=== PATIENT | male | born 1990 | race Caucasian/White ===

== ENCOUNTER 2018-12-25 18:02 | Emergency (ER) | payer BC, OTHER ==
[2018-12-25] MEDS ORDERED: NA CHLORIDE 0.9% 1,000 ML ONE ×2 (19:03→20:55)
[2018-12-25 19:27] LABS: Absolute Lymphocytes (CBC) 0.7 K/uL (0.7-4.9); Basophils % 0.4 % (0-1.3); Hematocrit 45.8 % (39.6-49.0); Lymphocytes % 7.4 % (15.3-44.8); MPV 8.8 fL (7.6-11.3); RBC Red Blood Cell Count 5.05 M/uL (4.33-5.43)
[2018-12-25 19:38] LABS: ALT/SGPT 32 U/L (12-78); AST/SGOT 24 U/L (15-37); Albumin 3.7 g/dL (3.4-5.0); Alkaline Phosphatase 78 U/L (45-117); BUN Blood Urea Nitrogen 9 mg/dL (7-18); Bicarbonate 26 mmol/L (21-32); Bilirubin Direct 0.2 mg/dL (0-0.2); Bilirubin Total 0.6 mg/dL (0.2-1.0); Glucose Level 99 mg/dL (74-106); Lipase 123 U/L (73-393); Potassium 3.6 mmol/L (3.5-5.1); Protein, Total 6.8 g/dL (6.4-8.2); Sodium Level 138 mmol/L (136-145)
--- NOTE | 2018-12-25 20:04 | RAD REPORT ---
EXAM DESCRIPTION: RAD - Chest Single View - 12/25/2018 7:26 pm CLINICAL HISTORY: Abdominal pain COMPARISON: None. TECHNIQUE: AP portable chest image was obtained 1917 hours . FINDINGS: Lungs are clear. Heart and vasculature are normal. No measurable pleural effusion and no p neumothorax. No acute bony abnormality seen. No acute aortic finding. Upper abdominal bowel gas pattern is unremarkable. No free air under the hemidiaphragms. IMPRESSION: No acute cardiopulmonary process. No free air under the diaphragm.
[2018-12-25] MEDS ORDERED: PROMETHAZINE 25 MG/ML VIAL ONE (20:55)
[2018-12-25] MEDS ORDERED: KETOROLAC 30 MG/ML INJ ONE (20:55)
[2018-12-25] MEDS ORDERED: CIPROFLOXACIN 400mg IV 400 MG/200 ML BAG IV ONE (23:04)
[2018-12-26] MEDS ORDERED: FENTANYL CITR 100 MCG/2 ML ONE
--- NOTE | 2018-12-26 00:06 | EDPHYS ---
Physician Documentation [facility] Name: Stevenson Garces Age: 28 yrs Sex: Male : 1990 Arrival Date: 12/25/2018 Time: 18:14 Bed 7 Private MD: ED Physician Chidi Green HPI: 12/25 23:42 This 28 yrs old Male presents to ER via Ambulatory with complaints of Fever, snw Diarrhea, Bloody Stools. 23:42 The patient reports fever, not measured (subjective). Onset: The symptoms/episode snw began/occurred suddenly, 2 day(s) ago, and became persistent. Modifying factors: The patient has had contact with sick son. Associated signs and symptoms: Pertinent positives: abdominal cramping, fever, bloody stools. Severity of symptoms: At their worst the symptoms were moderate in the emergency department the symptoms are unchanged. The patient has not experienced similar symptoms in the past, but family has similar symptoms, spouse, son. The patient has not recently seen a physician. Pt's Son with bloody diarrhea for weeks, Spouse started having bloody stools in ED. Pt without hx GIB. + bloody stool sent to lab. Pt family has well water.. Historical: - Allergies: 18:18 Sulfa (Sulfonamide Antibiotics); hb 19:05 Morphine; cc3 - Home Meds: 18:18 None [Active]; hb - PMHx: 18:18 None; hb - PSHx: 18:18 None; hb - Immunization history:: Adult Immunizations up to date. - Social history:: Smoking status: Patient uses tobacco products, smokes one-half pack cigarettes per day. - Ebola Screening: : No symptoms or risks identified at this time. ROS: 23:41 Eyes: Negative for injury, pain, redness, and discharge, ENT: Negative for injury, snw pain, and discharge, Neck: Negative for injury, pain, and swelling, Cardiovascular: Negative for chest pain, palpitations, and edema, Respiratory: Negative for shortness of breath, cough, wheezing, and pleuritic chest pain. 23:41 Back: Negative for injury and pain, : Negative for injury, bleeding, discharge, and swelling, MS/Extremity: Negative for injury and deformity, Skin: Negative for injury, rash, and discoloration, Neuro: Negative for headache, weakness, numbness, tingling, and seizure. 23:41 Constitutional: Positive for body aches, malaise. 23:41 Constitutional: Positive for fever. 23:41 Abdomen/GI: Positive for abdominal pain, diarrhea, abdominal cramps, bloody stools. Exam: 21:34 Head/Face: Normocephalic, atraumatic. Eyes: Pupils equal round and reactive to light, snw extra-ocular motions intact. Lids and lashes normal. Conjunctiva and sclera are non-icteric and not injected. Cornea within normal limits. Periorbital areas with no swelling, redness, or edema. ENT: Nares patent. No nasal discharge, no septal abnormalities noted. Tympanic membranes are normal and external auditory canals are clear. Oropharynx with no redness, swelling, or masses, exudates, or evidence of obstruction, uvula midline. Mucous membranes moist. Neck: Trachea midline, no thyromegaly or masses palpated, and no cervical lymphadenopathy. Supple, full range of motion without nuchal rigidity, or vertebral point tenderness. No Meningismus. Chest/axilla: Normal chest wall appearance and motion. Nontender with no deformity. No lesions are appreciated. Cardiovascular: Regular rate and rhythm with a normal S1 and S2. No gallops, murmurs, or rubs. Normal PMI, no JVD. No pulse deficits. Respiratory: Lungs have equal breath sounds bilaterally, clear to auscultation and percussion. No rales, rhonchi or wheezes noted. No increased work of breathing, no retractions or nasal flaring. Abdomen/GI: Soft, non-tender, with normal bowel sounds. No distension or tympany. No guarding or rebound. No evidence of tenderness throughout. Back: No spinal tenderness. No costovertebral tenderness. Full range of motion. Skin: Warm, dry with normal turgor. Pale color with no rashes, no lesions, and no evidence of cellulitis. MS/ Extremity: Pulses equal, no cyanosis. Neurovascular intact. Full, normal range of motion. Neuro: Awake and alert, GCS 15, oriented to person, place, time, and situation. Cranial nerves II-XII grossly intact. Motor strength 5/5 in all extremities. Sensory grossly intact. Cerebellar exam normal. Normal gait. Psych: Awake, alert, with orientation to person, place and time. Behavior, mood, and affect are within normal limits. 21:34 Constitutional: The patient appears alert, awake, anxious, pale. Vital Signs: 18:18 BP 129 / 85; Pulse 91; Resp 16; Temp 98.9(TE); Pulse Ox 96% on R/A; Weight 86.18 kg; hb Height 6 ft. 2 in. (187.96 cm); Pain 10/10; 19:12 BP 120 / 83; Pulse 78; Resp 17 S; Pulse Ox 98% on R/A; cc3 20:15 BP 127 / 76; Pulse 78; Resp 15 S; Pulse Ox 99% on R/A; cc3 21:14 BP 125 / 74; Pulse 75; Resp 16 S; Pulse Ox 98% on R/A; cc3 22:23 BP 115 / 74; Pulse 71; Resp 15 S; Pulse Ox 99% on R/A; Pain 2/10; cc3 23:34 BP 113 / 70; Pulse 78; Resp 18 S; Pulse Ox 99% on R/A; cc3 12/26 00:45 BP 127 / 77; Pulse 67; Resp 15 S; Temp 98.5(O); Pulse Ox 97% on R/A; Pain 2/10; cc3 12/25 18:18 Body Mass Index 24.39 (86.18 kg, 187.96 cm) hb MDM: 12/25 18:52 Patient medically screened. snw 12/26 00:05 Data reviewed: vital signs, nurses notes. Data interpreted: Pulse oximetry: on room air snw is 99 %. Interpretation: normal. Counseling: I had a detailed discussion with the patient and/or guardian regarding: the historical points, exam findings, and any diagnostic results supporting the discharge/admit diagnosis, lab results, the need for outpatient follow up, to return to the emergency department if symptoms worsen or persist or if there are any questions or concerns that arise at home, smoking cessation. Special discussion: Based on the patient's Hx, exam, and Dx evaluation, there is no indication for emergent surgery or inpatient Tx. It is understood by the patient/guardian that if the Sx's persist or worsen they need to return immediately for re-evaluation. Based on the history and exam findings, there is no indication for further emergent testing or inpatient evaluation. I discussed with the patient/guardian the need to see the commercial real estate attorney for further evaluation of the symptoms. I discussed with the patient/guardian the need to see the primary care provider for further evaluation of the symptoms. 12/25 18:54 Order name: Basic Metabolic Panel snw 12/25 18:54 Order name: CBC with Diff; Complete Time: 19:38 snw 12/25 18:54 Order name: Creatinine for Radiology; Complete Time: 19:38 snw 12/25 18:54 Order name: Hepatic Function; Complete Time: 19:55 snw 12/25 18:54 Order name: Lipase; Complete Time: 19:55 snw 12/25 18:54 Order name: Stool Culture snw 12/25 18:54 Order name: Fecal Leukocyte Stain w 12/25 18:54 Order name: Occult Blood; Complete Time: 22:08 snw 12/25 18:54 Order name: Chest Single View XRAY; Complete Time: 20:06 snw 12/25 18:55 Order name: Basic Metabolic Panel; Complete Time: 19:55 EDMS 12/25 18:54 Order name: IV Saline Lock; Complete Time: 19:06 snw 12/25 18:54 Order name: Labs collected and sent; Complete Time: 19:06 snw Administered Medications: 12/25 19:05 Drug: NS 0.9% 1000 ml Route: IV; Rate: 1 bolus; Site: right antecubital; cc3 20:15 Follow up: Response: No adverse reaction; IV Status: Completed infusion; IV Intake: cc3 1000ml 20:55 Drug: NS 0.9% 1000 ml Route: IV; Rate: 1 bolus; Site: right antecubital; cc3 22:00 Follow up: Response: No adverse reaction; IV Status: Completed infusion; IV Intake: cc3 1000ml 20:55 Drug: TORadol - Ketorolac 15 mg Route: IVP; Site: right antecubital; cc3 22:25 Follow up: Response: No adverse reaction; Pain is decreased cc3 21:02 Not Given (Patient Refused): Phenergan 12.5 mg IVP once cc3 23:05 Drug: Cipro 400 mg Volume: 200 ml; Route: IVPB; Infused Over: 60 mins; Site: right cc3 antecubital; 12/26 00:45 Follow up: Response: No adverse reaction; IV Status: Completed infusion; IV Intake: cc3 200ml 00:00 Drug: fentaNYL (PF) 50 mcg Route: IM; Site: right gluteus; cc3 00:45 Follow up: Response: No adverse reaction; Pain is decreased; RASS: Alert and Calm (0) cc3 Disposition: 12/26/18 00:04 Discharged to Home. Impression: Bacterial, bloody diarrhea. - Condition is Stable. - Discharge Instructions: Food Choices to Help Relieve Diarrhea, Adult, Bloody Diarrhea. - Prescriptions for Cipro 500 mg Oral Tablet - take 1 tablet by ORAL route every 12 hours for 10 days; 20 tablet. Zofran 4 mg Oral Tablet - take 1 tablet by ORAL route every 12 hours As needed; 20 tablet. Diclofenac Sodium 75 mg Oral Tablet Sustained Release - take 1 tablet by ORAL route 2 times per day; 30 tablet. - Work release form, Medication Reconciliation Form, Thank You Letter, Antibiotic Education, Prescription Opioid Use form. - Follow up: Private Physician; When: 1 week; Reason: Recheck today's complaints, Continuance of care, Re-evaluation by your physician. Follow up: Emergency Department; When: As needed; Reason: Worsening of condition. Addendum: 12/27/2018 07:18 Co-signature as Attending Physician, Chidi Green MD. r n Signatures: Dispatcher [employer] EDMS Nelly Ford, PRODUCTION TRAINER-C PRODUCTION TRAINER-Csnw Chidi Green MD MD rn Baxter, Heather, RN RN hb Cordel, Charlene cc3 Corrections: (The following items were deleted from the chart) 12/26 00:55 00:04 12/26/2018 00:04 Discharged to Home. Impression: Bacterial, bloody diarrhea. cc3 Condition is Stable. Forms are Medication Reconciliation Form, Thank You Letter, Antibiotic Education, Prescription Opioid Use. Follow up: Private Physician; When: 1 week; Reason: Recheck today's complaints, Continuance of care, Re-evaluation by your physician. Follow up: Emergency Department; When: As needed; Reason: Worsening of condition. snw
--- NOTE | 2018-12-26 00:06 | ER ---
Nurse's Notes [facility] Name: Stevenson Garces Age: 28 yrs Sex: Male : 1990 Arrival Date: 12/25/2018 Time: 18:14 Bed 7 Private MD: Diagnosis: Bacterial, bloody diarrhea Presentation: 12/25 18:17 Presenting complaint: Diarrhea, upper abdominal pain, and fever x 2 days, bloody hb diarrhea since this morning. TMAX 100. Transition of care: patient was not received from another setting of care. Onset of symptoms was December 24, 2018. Risk Assessment: Do you want to hurt yourself or someone else? Patient reports no desire to harm self or others. Initial Sepsis Screen: Does the patient meet any 2 criteria? No. Patient's initial sepsis screen is negative. Does the patient have a suspected source of infection? No. Patient's initial sepsis screen is negative. Care prior to arrival: None. 18:17 Method Of Arrival: Ambulatory hb 18:17 Acuity: ROSE MARIE 3 hb Historical: - Allergies: 18:18 Sulfa (Sulfonamide Antibiotics); hb 19:05 Morphine; cc3 - Home Meds: 18:18 None [Active]; hb - PMHx: 18:18 None; hb - PSHx: 18:18 None; hb - Immunization history:: Adult Immunizations up to date. - Social history:: Smoking status: Patient uses tobacco products, smokes one-half pack cigarettes per day. - Ebola Screening: : No symptoms or risks identified at this time. Screenin:25 Abuse screen: Denies threats or abuse. Denies injuries from another. Nutritional sg screening: No deficits noted. Tuberculosis screening: No symptoms or risk factors identified. Never had TB. Fall Risk None identified. Assessment: 18:25 General: Appears in no apparent distress. uncomfortable, ill, well groomed, well sg developed, well nourished, Behavior is calm, cooperative, appropriate for age. Pain: Denies pain. Neuro: Level of Consciousness is awake, alert, obeys commands, Speech is normal, Facial symmetry appears normal. Cardiovascular: Capillary refill is brisk in bilateral fingers Patient's skin is warm and dry. Chest pain is denied. Respiratory: Airway is patent Respiratory effort is even, unlabored, Respiratory pattern is regular, symmetrical. GI: Abdomen is flat, non-distended, Reports bloody stool. : No signs and/or symptoms were reported regarding the genitourinary system. EENT: No signs and/or symptoms were reported regarding the EENT system. Derm: Skin is intact, is healthy with good turgor, Skin is dry, Skin is pale, Skin temperature is cool. Musculoskeletal: Circulation, motion, and sensation intact. Range of motion: intact in all extremities. 19:05 Reassessment: Patient appears in no apparent distress at this time. Patient and/or cc3 family updated on plan of care and expected duration. Pain level reassessed. Patient is alert, oriented x 3, equal unlabored respirations, skin warm/dry/pink. Received this male patient from morning shift SONNY Montilla as a case of bloody diarrhea. With IV cannula gauge 20 at the right ACV saline locked. General: Appears in no apparent distress. uncomfortable, Behavior is calm, cooperative, appropriate for age. Pain: Denies pain. Neuro: Level of Consciousness is awake, alert, obeys commands, Oriented to person, place, time, situation, Appropriate for age. Cardiovascular: Denies chest pain, Heart tones S1 S2 present Capillary refill < 3 seconds in bilateral fingers Patient's skin is warm and dry. Chest pain is denied. Respiratory: Airway is patent Respiratory effort is even, unlabored, Respiratory pattern is regular, symmetrical, Breath sounds are clear bilaterally. GI: Abdomen is flat, Bowel sounds present X 4 quads. Abd is soft and non tender X 4 quads. Reports bloody stool, since Monday. : No signs and/or symptoms were reported regarding the genitourinary system. EENT: No signs and/or symptoms were reported regarding the EENT system. Derm: Skin is intact, is healthy with good turgor, Skin is pink, warm \T\ dry. normal. Musculoskeletal: Circulation, motion, and sensation intact. Range of motion: intact in all extremities. 20:20 Reassessment: Patient appears in no apparent distress at this time. Patient and/or cc3 family updated on plan of care and expected duration. Pain level reassessed. Patient is alert, oriented x 3, equal unlabored respirations, skin warm/dry/pink. 21:14 Reassessment: Patient appears in no apparent distress at this time. Patient and/or cc3 family updated on plan of care and expected duration. Pain level reassessed. Patient is alert, oriented x 3, equal unlabored respirations, skin warm/dry/pink. 22:25 Reassessment: Patient appears in no apparent distress at this time. Patient and/or cc3 family updated on plan of care and expected duration. Pain level reassessed. Patient is alert, oriented x 3, equal unlabored respirations, skin warm/dry/pink. Patient denies pain at this time. Patient states feeling better. Patient states symptoms have improved. 23:34 Reassessment: Patient appears in no apparent distress at this time. Patient and/or cc3 family updated on plan of care and expected duration. Pain level reassessed. Patient is alert, oriented x 3, equal unlabored respirations, skin warm/dry/pink. 12/26 00:50 Reassessment: Patient appears in no apparent distress at this time. Patient and/or cc3 family updated on plan of care and expected duration. Pain level reassessed. Patient is alert, oriented x 3, equal unlabored respirations, skin warm/dry/pink. IV antibiotic completed, JAMAAL Villegas discharged the patient home with prescriptions given. IV cannula removed and patient left ER vitally stable and ambulatory with his . No valuables left in the patient's room. Patient denies pain at this time. Patient states feeling better. Patient states symptoms have improved. Vital Signs: 12/25 18:18 BP 129 / 85; Pulse 91; Resp 16; Temp 98.9(TE); Pulse Ox 96% on R/A; Weight 86.18 kg; hb Height 6 ft. 2 in. (187.96 cm); Pain 10/10; 19:12 BP 120 / 83; Pulse 78; Resp 17 S; Pulse Ox 98% on R/A; cc3 20:15 BP 127 / 76; Pulse 78; Resp 15 S; Pulse Ox 99% on R/A; cc3 21:14 BP 125 / 74; Pulse 75; Resp 16 S; Pulse Ox 98% on R/A; cc3 22:23 BP 115 / 74; Pulse 71; Resp 15 S; Pulse Ox 99% on R/A; Pain 2/10; cc3 23:34 BP 113 / 70; Pulse 78; Resp 18 S; Pulse Ox 99% on R/A; cc3 12/26 00:45 BP 127 / 77; Pulse 67; Resp 15 S; Temp 98.5(O); Pulse Ox 97% on R/A; Pain 2/10; cc3 12/25 18:18 Body Mass Index 24.39 (86.18 kg, 187.96 cm) hb ED Course: 12/25 18:14 Patient arrived in ED. mr 18:18 Triage completed. hb 18:18 Arm band placed on. hb 18:28 Roldan Barksdale RN is Primary Nurse. jl7 18:51 Nelly Ford FNP-C is PHCP. snw 18:52 Chidi Green MD is Attending Physician. snw 19:00 Kim Franklin is Primary Nurse. cc3 19:05 Patient has correct armband on for positive identification. Placed in gown. Bed in low cc3 position. Call light in reach. Side rails up X2. Pulse ox on. NIBP on. 19:06 Initial lab(s) drawn, by me, sent to lab. Inserted saline lock: 20 gauge in right sg forearm, using aseptic technique. Blood collected. 19:28 Chest Single View XRAY In Process Unspecified. EDMS 12/26 00:50 No provider procedures requiring assistance completed. IV discontinued, intact, cc3 bleeding controlled, No redness/swelling at site. Pressure dressing applied. Administered Medications: 12/25 19:05 Drug: NS 0.9% 1000 ml Route: IV; Rate: 1 bolus; Site: right antecubital; cc3 20:15 Follow up: Response: No adverse reaction; IV Status: Completed infusion; IV Intake: cc3 1000ml 20:55 Drug: NS 0.9% 1000 ml Route: IV; Rate: 1 bolus; Site: right antecubital; cc3 22:00 Follow up: Response: No adverse reaction; IV Status: Completed infusion; IV Intake: cc3 1000ml 20:55 Drug: TORadol - Ketorolac 15 mg Route: IVP; Site: right antecubital; cc3 22:25 Follow up: Response: No adverse reaction; Pain is decreased cc3 21:02 Not Given (Patient Refused): Phenergan 12.5 mg IVP once cc3 23:05 Drug: Cipro 400 mg Volume: 200 ml; Route: IVPB; Infused Over: 60 mins; Site: right cc3 antecubital; 12/26 00:45 Follow up: Response: No adverse reaction; IV Status: Completed infusion; IV Intake: cc3 200ml 00:00 Drug: fentaNYL (PF) 50 mcg Route: IM; Site: right gluteus; cc3 00:45 Follow up: Response: No adverse reaction; Pain is decreased; RASS: Alert and Calm (0) cc3 Intake: 12/25 20:15 IV: 1000ml; Total: 1000ml. cc3 22:00 IV: 1000ml; Total: 2000ml. cc3 12/26 00:45 IV: 200ml; Total: 2200ml. cc3 Outcome: 00:04 Discharge ordered by MD. snw 00:50 Discharged to home ambulatory, with family. cc3 00:50 Condition: stable 00:50 Discharge instructions given to patient, family, Instructed on discharge instructions, follow up and referral plans. medication usage, Demonstrated understanding of instructions, follow-up care, medications, Prescriptions given X 3. 00:55 Patient left the ED. cc3 Addendum: 12/30/2018 09:50 Addendum: Culture Results: Positive stool culture. No further action required. Bacteria i w sensitive to prescribed antibiotic. Signatures: Dispatcher [employer] EDMS Harpreet Coelho RN RN sg Nelly Ford, EDUCATION PARAPROFESSIONAL-C EDUCATION PARAPROFESSIONAL-Margoth BrowneJocelyn Monika Jackson, RN Jane Dewitt RN RN hb Leal, Jahala, RN RN jl7 Cordel, Charlene cc3 Corrections: (The following items were deleted from the chart) 09:51 09:50 Addendum: Culture Results: Positive stool culture. Bacteria is resistant to, has iw intermediate sensitivity, or is not tested against prescribed antibiotics. Report given to SOUMYA for further evaluation and then to civil rights representative for follow up with patient. iw
[2018-12-26 01:07] VITALS: TEMP 98.9
[2018-12-26 01:13] VITALS: O2SAT 99
[2018-12-26 01:14] VITALS: BP 113/70
== END 2018-12-26 00:55 | disposition home or self-care (01) ==
LOC: ER 18:02
DX: A04.9 Bacterial intestinal infection, unspecified (principal); F17.210 Nicotine dependence, cigarettes, uncomplicated; Z88.2 Allergy status to sulfonamides; Z88.5 Allergy status to narcotic agent
CPT/HCPCS: 96365; 96361; 87045; 85025; 80048; 36415; 89055; 82274; 80076; 87046; 87077; 87186; 83690; 71045; 96375; 96372; 99284; 96366; J2550; J3010; J7030 ×2; J0744